=== PATIENT | male | born 1970 | race Caucasian/White ===

== ENCOUNTER → 2016-12-07 | Outpatient (CLI) | payer BC ==
[2016-12-07 10:17] LABS: BASOPHILS # (AUTO) 0.02 10*3/UL; BASOPHILS % (AUTO) 0.3 % (0-1); EOSINOPHILS % (AUTO) 0 % (0-8); HEMATOCRIT 47.8 % (42.0-52.0); HEMOGLOBIN 16.3 g/dL (14.0-18.0); IMM GRAN % (AUTO) 0 % (0-5); IMM GRAN# (AUTO) 0 10*3/UL; LYMPHOCYTES # (AUTO) 1.28 10*3/uL; LYMPHOCYTES % (AUTO) 20.8 % (10-50); MEAN CORPUSCULAR HEMOGLOBIN 30.9 PG (27-31); MEAN CORPUSCULAR HGB CONC 34.1 g/dL (33-37); MEAN PLATELET VOLUME 10.4 FL (7.4-12.2); MONOCYTES # (AUTO) 0.75 10*3/UL (0.3-0.8); MONOCYTES % (AUTO) 12.2 % (5-15); NEUTROPHILS % (AUTO) 66.7 % (50-80); RDW COEFFICIENT OF VARIATION 12.5 % (11.5-14.5); RED BLOOD COUNT 5.28 10^6/uL (4.70-6.10); WHITE BLOOD COUNT 6.15 10^3/uL (4.8-10.8)
[2016-12-07 10:30] LABS: BILIRUBIN,TOTAL 0.5 mg/dL (0.3-1.2); PLATELET MORPHOLOGY COMMENT NORMAL MORPHOLOGY (NORM); TOTAL PROTEIN 7.2 g/dL (6.1-8.0)
[2016-12-08 23:51] LABS: LAMOTRIGINE (LAMICTAL) 4.1 mcg/mL (2.5 - 15.0)
== END ==
LOC: LAB 09:50
PROVIDERS: ATTEND Specialist
DX: G40.209 Localization-related (focal) (partial) symptomatic epilepsy and epileptic syndromes with complex partial seizures, not intractable, without status epilepticus (principal); Z79.899 Other long term (current) drug therapy
CPT/HCPCS: 80076; 80175; 84403; 85025